=== PATIENT | male | born 1970 | race Caucasian/White ===

== ENCOUNTER 2025-06-27 14:50 | Outpatient (AMB) | payer BC, SELFPAY ==
--- NOTE | 2025-06-27 14:59 | MHC.PC.OV ---
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 ?? Prior PCP:? [facility] Last office visit/CPE:? 2020 Acute issue(s):? HTN Wants Colonoscopy. Never had colonoscopy. Had prior Endoscopy for Narrrow esophagus and choking. Saw Urology and had UTI and PSA was WNL Low back pain; improves w/ massage ?? PMHx:? PreDM, HTN, SurgHx:?None FHx:? Mom: Brain Aneurysm age 27, Dementia, Dad: Prostate CA, Peripheral Arterial disease. GF: Cancer. SocHx: Nonsmoker, EtOH: 2x a week 1-2 drinks. 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 1. Little interest or pleasure in doing things: not at all 2. Feeling down, depressed, or hopeless: not at all 3. Trouble falling or staying asleep, or sleeping too much: not at all 4. Feeling tired or having little energy: several days 5. Poor appetite or overeating: not at all 6. Feeling bad about yourself - or that you are a failure or have let yourself or your family down: not at all 7. Trouble concentrating on things, such as reading the newspaper or watching television: not at all 8. Moving or speaking so slowly that other people could have noticed. Or the opposite - being so fidgety or restless that you have been moving around a lot more than usual: not at all 9. Thoughts that you would be better off or of hurting yourself in some way: not at all Total score: 1 Depression Screening Interpretation: Negative Depression Screening Done: Yes 48166 - PHQ-9 Billing: Yes Source: Developed by Drs. Joselito Shah, Marlene Shaikh, Terence Ramirez and colleagues, with an educational roula from [employer]. Thrive Questionnaire Date Thrive assessed: 06/27/25 I am a: Patient What is your living situation today?: I have a steady place to live Within the past 12 months, did the food you bought not last and you didn't have the money to get more?: Never true Within the past 12 months, did you worry whether your food would run out before you got money to buy more?: Never true Do you have trouble paying for medicines?: No Do you have trouble getting transportation to medical appointments?: No Do you have trouble paying your heating and electricity bill?: I choose not to answer this question Do you have trouble taking care of your child, family member or friend?: No Do you have trouble with day-to-day activities such as bathing, preparing meals, shopping, managing finances, etc.?: No Are you currently unemployed and looking for a job?: No Are you interested in more education?: No Please select the resources that you would like help with: None Currently or been in a relationship where the following occur: No concerns reported THRIVE Score: 0 AUDIT C Alcohol Use Questionnaire (AUDIT-C) 1. How often do you have a drink containing alcohol?: 2-4 times a month 2. How many drinks containing alcohol do you have on a typical day when you are drinking?: 1 or 2 3. How often do you have six or more drinks on one occasion?: Never Total Score: 2 Score Reviewed/Action Taken: No LEONIDAS-7 AMB Questionnaire LEONIDAS-7 Date LEONIDAS - 7 assessed: 06/27/25 Feeling nervous, anxious, or on edge: 0 = Not at all Not being able to stop or control worryin = Not at all Worrying too much about different things: 0 = Not at all Trouble relaxin = Not at all Being so restless that it is hard to sit still: 0 = Not at all Becoming easily annoyed or irritable: 0 = Not at all Feeling afraid as if something awful might happen: 0 = Not at all Total LEONIDAS-7 score (0-4 normal; 5-9 mild; 10-14 moderate; 15-21 severe): 0 Source: Developed by Drs. Joselito Shah, Marlene Shaikh, Terence Ramirez and colleagues, with an educational roula from [employer]. LEONIDAS-7 Assessment Billing LEONIDAS-7 Assessment Tool: LEONIDAS-7 Assessment 92445 Review of Systems Const Denies chills, Denies fatigue, Denies fever(s), Denies headache(s) and Denies weakness ENT Denies dizziness and Denies headache(s) Card Denies chest pain, Denies lightheadedness, Denies dyspnea and Denies other (Palpitations) Resp Denies cough, Denies dyspnea, Denies wheezing and Denies other ( shortness of breath) Musc Denies numbness and Denies tingling Neuro Denies dizziness, Denies headache(s), Denies numbness, Denies tingling, Denies paresthesias and Denies weakness Psych Denies anxiety and Denies depression Endo Denies fatigue Aller/Immun Denies wheezing Physical exam (Primary Care) Vital Signs: Last Vital Signs Temp 98.9 F 06/27/25 15:11 Pulse 91 06/27/25 15:11 Resp 16 06/27/25 15:11 BP 130/90 H 06/27/25 15:11 Pulse Ox 99 06/27/25 15:11 Oxygen Delivery Method Room Air 06/27/25 15:11 BMI result Body Mass Index 26.8 Tobacco/Smoking Status: Tobacco use Status Tobacco use date assessed 06/27/25 06/27/25 15:15 Patient Tobacco Use Status Never used Tobacco 06/27/25 15:15 e-Cigarette/Vaping Use Never Used 06/27/25 15:15 PHQ-9: PHQ-9 Score PHQ-9: Total score 1 06/27/25 15:15 Depression Screening Interpretation: Negative Thrive Assessment: Date of Thrive Assessment Date Thrive assessed 06/27/25 06/27/25 15:15 Currently or been in a relationship where the following occur: No concerns reported Const General: no acute distress and well developed Nutritional Appearance: well nourished Orientation/consciousness: patient oriented x3 HENMT Head: Yes normocephalic and Yes atraumatic Eyes General: appearance normal, both eyes and all related structures Pupils: Equal, round and reactive pupils present EOM: EOMs intact bilaterally Resp Effort & Inspection: normal respiratory effort Auscultation: clear to auscultation bilaterally Cardio Rate: regular rate Rhythm: regular rhythm Heart sounds: S1 normal heart sound present, S2 normal heart sound present, no gallops, no murmurs and no rubs Back/Spine/Pelvis Other: Low back pain at paraspinus muscles bilaterally, around L4-L5 Neuro General: patient oriented x3 and gait normal Cranial nerves: Yes Equal, round and reactive pupils present Psych Affect: normal affect Coding Level of Care Code New Pt Level 4 (90870) Diagnoses Hypertension I10 Pre-diabetes R73.03 Screening for colon cancer Z12.11 Low back pain M54.50 Toenail fungus B35.1 Raynaud phenomenon I73.00 Laboratory exam ordered as part of routine general medical examination Z00.00 Additional Codes LEONIDAS-7 Assessment Billing - LEONIDAS-7 Assessment Tool: LEONIDAS-7 Assessment 71590 ([id number]) PHQ-9 - 47822 - PHQ-9 Billing: Yes ([id number]) Assessment & Plan Assessment & Plan (1) Hypertension: Code(s): I10 - Essential (primary) hypertension Category: Medical Plan: Patient notes that his blood pressures are always high and particularly his diastolic blood pressure. Start hydrochlorothiazide Will follow-up at next visit (2) Pre-diabetes: Code(s): R73.03 - Prediabetes Category: Medical Plan: A1c most recently 5.8%. Early pre diabetes range Work at diet low in sugars and starches Will recheck this with next blood draw (3) Screening for colon cancer: Code(s): Z12.11 - Encounter for screening for malignant neoplasm of colon Category: Medical Plan: Patient has never had a colonoscopy and is due Referred to [facility] at patient request Also has had some difficulty swallowing and prior endoscopy with [facility]. He can discuss follow-up with them at his visit (4) Low back pain: Code(s): M54.50 - Low back pain, unspecified Category: Medical Plan: Will benefit from massage. Insurance covers massage and I write him a letter (5) Toenail fungus: Code(s): B35.1 - Tinea unguium Category: Medical Plan: He will use terbinafine cream Avoid excess moisture and change soaks twice daily (6) Raynaud phenomenon: Code(s): I73.00 - Raynaud's syndrome without gangrene Category: Medical Plan: Mild Raynaud's phenomenon at bilateral hands Keep hands warm (7) Laboratory exam ordered as part of routine general medical examination: Code(s): Z00.00 - Encounter for general adult medical examination without abnormal findings Category: Medical Plan: Check labs Orders: Orders Comprehensive [place]. Panel Fast Today Z00.00 - Encounter for general adult medical examination without abnormal findings Hemoglobin A1c Today R73.01 - Impaired fasting glucose, R73.03 - Prediabetes Microalbumin, Random (w Creat) Today I10 - Essential (primary) hypertension Lipid Panel Today Z00.00 - Encounter for general adult medical examination without abnormal findings Prostate Specific Antigen Scr Today Z12.5 - Encounter for screening for malignant neoplasm of prostate TSH reflex Free T4 Today Z00.00 - Encounter for general adult medical examination without abnormal findings UA CC w/rflx Micro + Cult Today Z00.00 - Encounter for general adult medical examination without abnormal findings Referrals Gastroenterology Referral R13.10 - Dysphagia, unspecified, Z12.11 - Encounter for screening for malignant neoplasm of colon Medications: New hydrochlorothiazide 25 mg PO QAM 90 tabs 3RF 90 days terbinafine HCl 1% (Athlete's Foot (terbinafine)) 1 appl topical BID 30 grams 1RF 30 days
[2025-06-27 15:11] VITALS: BP 130/90; PULSE 91; RESP 16; TEMP 37.2; O2SAT 99; BMI 26.8
== END 2025-06-27 15:45 | disposition home or self-care (01) ==
LOC: HO.HMCFM 14:51
PROVIDERS: PCP Family Medicine; Visit Provider Family Medicine
DX: I10 Essential (primary) hypertension (principal); R73.03 Prediabetes; Z12.11 Encounter for screening for malignant neoplasm of colon; M54.50 Low back pain, unspecified; B35.1 Tinea unguium; I73.00 Raynaud's syndrome without gangrene; Z00.00 Encounter for general adult medical examination without abnormal findings

== ENCOUNTER → 2025-06-27 14:50 | Outpatient (BNVA) | payer BC, SELFPAY | PROVIDERS: PCP Family Medicine; Visit Provider Family Medicine | DX: Z00.00 Encounter for general adult medical examination without abnormal findings (principal); I10 Essential (primary) hypertension; R73.03 Prediabetes; M54.50 Low back pain, unspecified; B35.1 Tinea unguium; I73.00 Raynaud's syndrome without gangrene; R73.01 Impaired fasting glucose | CPT/HCPCS: 96127 ==

== ENCOUNTER 2025-07-01 08:57 | Outpatient (REF) | payer BC, SELFPAY ==
[2025-07-01 12:21] LABS: Alanine Aminotransferase 38 U/L (0-40); Albumin Level 4.8 g/dL (3.5-5.0); Alkaline Phosphatase 74 U/L (39-117); Anion Gap 12 (12-20); Aspartate Amino Transferase 29 U/L (5-37); Blood Urea Nitrogen 18 mg/dL (9-16); Calcium 9.5 mg/dL (8.4-10.2); Carbon Dioxide 28 mmol/L (22-29); Chloride 104 mmol/L (96-108); Cholesterol 168 mg/dL (<200); Estimated Glomerular Filt Rate > 60; HDL Cholesterol 48 mg/dL (>40); Potassium 3.9 mmol/L (3.3-5.1); Sodium 140 mmol/L (135-145); Total Protein 7.8 g/dL (6.5-8.0); Triglycerides 85 mg/dL (<150)
== END 2025-07-01 08:58 | disposition home or self-care (01) ==
LOC: HO.WFDLDS 08:57
PROVIDERS: Visit Provider Family Medicine
DX: Z00.00 Encounter for general adult medical examination without abnormal findings (principal); Z12.5 Encounter for screening for malignant neoplasm of prostate; Z13.6 Encounter for screening for cardiovascular disorders; R73.03 Prediabetes; R73.01 Impaired fasting glucose
CPT/HCPCS: 36415; 80053; 80061; 83036; 84153; 84443